=== PATIENT | female | born 1975 | race Caucasian/White ===

== ENCOUNTER → 2016-09-24 09:31 | Outpatient (CLI) | payer MEDICARE ==
[2016-09-24 10:08] LABS: BASOPHILS 0.2 % (0-2); EOSINOPHILS 1.7 % (0-7); HEMATOCRIT 44.6 % (36.0-48.0); HEMOGLOBIN 14.9 g/dL (12-16); IMMATURE GRANULOCYTES 0.3 % (0-5); LYMPHOCYTES 24.8 % (15-50); MCH 31.6 pg (26.0-34.0); MCHC 33.4 g/dL (31.0-37.0); MCV 94.5 fL (80.0-100.0); MEAN PLATELET VOLUME 9.9 fL (7.4-10.4); MONOCYTES 5.5 % (2-11); NEUTROPHILS 67.5 % (40-80); PLATELET COUNT 236 10x3/uL (130-400); RBC 4.72 10x6/uL (4.00-5.40); RDW 13.3 % (11.5-14.5); WBC 12.1 10x3/uL (4.8-10.8)
[2016-09-24 10:37] LABS: ALKALINE PHOSPHATASE 69 U/L (46-116); ALT (SGPT) 16 U/L (10-68); BILIRUBIN - TOTAL 0.16 mg/dL (0.2-1.3); CALC OSMOLALITY 276 mosm/kg (275-300); CALCIUM 9.2 mg/dL (8.5-10.1); CARBON DIOXIDE 28.7 mmol/L (21.0-32.0); CHLORIDE - SERUM 104 mmol/L (98-107); CREATININE - SERUM 0.8 mg/dL (0.6-1.3); GLUCOSE 99 mg/dL (74-106); POTASSIUM - SERUM 5.1 mmol/L (3.5-5.1); PROTEIN - SERUM 8.1 g/dL (6.4-8.2); SODIUM 139 mmol/L (136-145); T4 THYROXINE 5.5 ug/dL (4.7-13.3); THYROID STIMULATING HORMONE 1.43 uIU/mL (0.36-3.74); UREA NITROGEN 10 mg/dL (7-18); eGFR NON AFRICAN AMERICAN 85 mL/min (90-120)
[2016-09-24 11:48] LABS: ERYTHROCYTE SEDIMENTATION RATE 9 mm/hr (0-20)
== END | disposition home or self-care (01) ==
LOC: D.MRI 09:31 → D.LAB 10-08 09:45 → D.CN 10-08 10:00 → D.MRI 10-08 11:00
PROVIDERS: Psychiatry & Neurology Neurology
DX: G43.711 Chronic migraine without aura, intractable, with status migrainosus (principal); F31.32 Bipolar disorder, current episode depressed, moderate